=== PATIENT | female | born 1950 | race Caucasian/White ===

== ENCOUNTER 2023-03-13 09:10 | Outpatient (CLI) | payer MEDICARE | END 2023-03-13 09:11 | disposition home or self-care (01) | LOC: CSHCT 09:10 | PROVIDERS: ATTEND Internal Medicine | DX: Z12.2 Encounter for screening for malignant neoplasm of respiratory organs (principal); F17.210 Nicotine dependence, cigarettes, uncomplicated; R59.0 Localized enlarged lymph nodes | CPT/HCPCS: 71271; 76536 ==